=== PATIENT | male | born 1950 | race Caucasian/White ===

== ENCOUNTER → 2017-11-04 | Outpatient (CLI) | payer BC, OTHER ==
[~2017-11-04] MED LIST: GLUCTAB7 PO; MULT-892 PO; OMEGCAP2 PO
[2017-11-04 16:57] LABS: BASO % 0.2 %; BASO ABS # 0.01 K/uL (0-0.2); EOS % 2.5 %; EOS ABS # 0.11 K/uL (0-0.5); HEMATOCRIT 43.4 % (42-52); HEMOGLOBIN 14.6 g/dL (14.0-18.0); IG# 0.01 K/uL (0.00-0.02); LYMPH % 33.1 %; LYMPH ABS # 1.47 K/uL (1.2-3.4); MEAN CELL VOLUME 91.8 fL (80-100); MEAN CORPUSCULAR HEMOGLOBIN 30.9 pg (25-34); MEAN CORPUSCULAR HGB CONC 33.6 g/dl (32-36); MEAN PLATELET VOLUME 9.9 fL (7.4-10.4); MONO % 9.2 %; MONO ABS # 0.41 K/uL (0.11-0.59); NEUT % 54.8 %; NEUT ABS # 2.43 K/uL (1.4-6.5); PLATELET COUNT 183 K/uL (130-400); RED CELL DISTRIBUTION WIDTH CV 12.5 % (11.5-14.5); RED CELL DISTRIBUTION WIDTH SD 42.2 fL (36.4-46.3); WHITE BLOOD COUNT 4.44 K/uL (4.8-10.8)
[2017-11-04 17:10] LABS: ALBUMIN 3.7 gm/dl (3.4-5.0); ALT/SGPT 25 U/L (12-78); BLOOD UREA NITROGEN 20 mg/dl (7-18); CALCIUM 8.9 mg/dl (8.5-10.1); CARBON DIOXIDE 29 mmol/L (21-32); CHOLESTEROL 220 mg/dl (0-200); CREATININE 0.92 mg/dl (0.60-1.40); GLUCOSE 113 mg/dl (70-99); POTASSIUM 4.1 mmol/L (3.5-5.1); SODIUM 141 mmol/L (136-145)
[2017-11-04 17:14] LABS: ALKALINE PHOSPHATASE 78 U/L (45-117); AST/SGOT 13 U/L (15-37); LDL CHOLESTEROL CALCULATED 118 mg/dl; TOTAL PROTEIN 7.3 gm/dl (6.4-8.2)
--- NOTE | 2017-11-12 10:23 | CODING QUERY MEDICAL NECESSITY ---
SUPPORTING DIAGNOSIS NEEDED A supporting diagnosis is required for the test/procedure performed on this patient in order for us to be reimbursed by the patient's insurance. Please provide a supporting diagnosis for the following test/procedure listed below next to the test name along with your signature. *If there is no additional diagnosis for this patient that would support the following test/procedure please document that below next to the test/procedure. Test(s)/Procedure(s) that require a supporting diagnosis: DOS: 11/04/17 * PSA DIAGNOSIS: Provider Signature: Date: Thank you [facility] Management Once completed, please kindly fax back to [phone] For questions please call [phone]
== END | disposition home or self-care (01) ==
LOC: C.LABBC 15:22
PROVIDERS: ATTEND Internal Medicine
DX: M19.90 Unspecified osteoarthritis, unspecified site (principal); D64.9 Anemia, unspecified; R73.9 Hyperglycemia, unspecified; M48.00 Spinal stenosis, site unspecified; M25.50 Pain in unspecified joint

== ENCOUNTER → 2017-12-21 | Outpatient (CLI) | payer BC ==
--- NOTE | 2017-12-21 09:38 | DIAGNOSTIC IMAGING REPORT ---
R HAND MIN 3 VIEWS ROUTINE CLINICAL HISTORY: 67 years-old Male presenting with M72.0 Dupuytren's contracture attention right 5th finger. TECHNIQUE: Frontal, oblique, and lateral views of the right hand were obtained. COMPARISON: None. FINDINGS: The right fifth finger demonstrates hyper extension of the distal interphalangeal joint and flexion of the proximal interphalangeal joint. Osteophytosis at the distal interphalangeal joint evident as well as at additional DIP joints. Mild degenerative changes of the radiocarpal articulation. No acute fracture or acute malalignment. Atherosclerosis. IMPRESSION: 1. 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 2. Osteophytosis of multiple DIP joints characteristic of osteoarthritis. Electronically signed by: Krzysztof High M.D. 12/21/2017 9:37 AM Dictated Date/Time: 12/21/2017 9:31 AM
== END | disposition home or self-care (01) ==
LOC: C.RADBC 09:02
PROVIDERS: ATTEND Family Medicine Adult Medicine
DX: M72.0 Palmar fascial fibromatosis [Dupuytren] (principal); M25.741 Osteophyte, right hand

== ENCOUNTER → 2018-04-15 | Outpatient (CLI) | payer BC ==
--- NOTE | 2018-04-15 10:56 | DIAGNOSTIC IMAGING REPORT ---
CERVICAL SPINE 2 OR 3 VIEWS CLINICAL HISTORY: M19.90 Osteoarthritis prior surgery [id number]. Neck pain. COMPARISON STUDY: None. FINDINGS: AP, lateral, and odontoid views of the cervical spine were submitted for review. The cervical spine is visualized from C1 through T1. Straightening of the cervical spine with slight reversal the normal lordotic curvature. Extensive posterior decompression and fusion from C3 through C7 with pedicle screws and plates. The hardware appears intact. No fracture or subluxation. Prevertebral soft tissues and the C1-C2 interval are maintained. The C2-C3 sets appear fused. IMPRESSION: 1. Extensive posterior decompression and fusion within the cervical spine from C3 through C7. The hardware appears intact. 2. This likely accounts for the straightening of the cervical spine. 3. No fracture or subluxation. Electronically signed by: Liam Harrison M.D. 04/15/2018 10:55 AM Dictated Date/Time: 04/15/2018 10:51 AM
== END | disposition home or self-care (01) ==
LOC: C.RADBC 10:04
PROVIDERS: ATTEND Family Medicine Adult Medicine
DX: M19.90 Unspecified osteoarthritis, unspecified site (principal)

== ENCOUNTER 2024-12-28 07:53 | Observation (INO) ==
--- NOTE | 2024-12-28 09:14 | History & Physical Bridge Note ---
Date of Service December 28, 2024 History & Physical Bridge Note I have examined the patient, reviewed the History & Physical and in the interval since the performance of the History & Physical I have noted the following changes of clinical significance: no changes noted 74-year-old gentleman who follows with Dr. Dozier for his cardiology needs. Patient has had progressive anginal symptoms which are now limiting in nature. Underwent stress echocardiogram which demonstrated electrocardiographic evidence of myocardial ischemia as well as echo evidence of segmental wall motion at rest which worsened significantly with stress. Patient has therefore been scheduled to undergo cardiac catheterization for definitive evaluation plus or minus PCI as indicated. Comorbid disease includes hypertension and dyslipidemia. We will proceed with coronary angiography plus or minus PCI. Radial artery approach is intended. The risks, benefits, and alternatives were discussed in detail with the patient. Risks include but are not limited to; , stroke, MD, adverse drug reaction, infection, bleed, need for emergent surgery, renal failure, and exposure to radiation. Lack of onsite cardiac surgical backup and plan for air evacuation in the event of emergency was also discussed. Patient's questions were answered in full. He voiced understanding and wished to proceed with catheterization plus or minus PCI. The consent is signed and in the chart.
--- NOTE | 2024-12-28 09:15 | Pre Anesthesia Assessment ---
Date of Service December 28, 2024 Pre Sedation Assessment Vital Signs Temp Resp Pulse Ox O2 Del Method 12/28/24 08:04 36.6 C 18 97 Room Air Cardiovascular RRR, no murmur, no edema Respiratory normal respiratory effort, lungs clear to auscultation Pre-Sedation Airway Assessment Smoking Status: Former smoker Mallampati 2 ASA 3 Notes The planned sedation has been discussed with the patient. Informed Consent was obtained. I have identified the patient, determined the appropriateness of sedation and have assessed the patient immediately prior to the procedure. All medicine(s) and interventions are by my order.
[2024-12-28 09:44] LABS: iSTAT Creatinine 0.9 mg/dl (0.6-1.3); iSTAT Hemoglobin 14.3 g/dl (14.0-18.0); iSTAT Ionized Calcium 1.21 mmol/l (1.12-1.32); iSTAT Potassium 3.7 mmol/L (3.3-5.0)
[2024-12-28] MEDS: NITROGLYCERIN/D5W 100MCG/ML 20ML SYR ONE (10:05)
[2024-12-28] MEDS: niCARdipine 2,000 MCG/20 ML SYR ONE (10:05)
[2024-12-28] MEDS: OPTIRAY 350 ONE (11:17)
[2024-12-28] MEDS: fentaNYL citrate PF 100 MCG/2 ML VIAL ONE (11:17)
[2024-12-28] MEDS: MIDAZOLAM HCL 1 MG/ML 2ML VIAL ONE (11:17)
[2024-12-28] MEDS: HEPARIN (PORCINE) 1000 UNIT/ML 10 ML (CATH LAB USE ONLY) ONE ×2 (11:17)
[2024-12-28] MEDS: TICAGRELOR 90 MG TAB ONE (11:19)
--- NOTE | 2024-12-28 11:25 | Post Anesthesia Assessment ---
Date of Service December 28, 2024 Post Sedation Assessment Vital Signs Temp Resp Pulse Ox O2 Del Method 12/28/24 08:04 36.6 C 18 97 Room Air Recovery Score Activity: Moves 4 extremities Respiration: Deep Breath/Cough Circulation: +/-20% PreAnes Value Consciousness: Fully Awake Oxygen Saturation: > 92% On Room Air Discharge Sedation Level of Care: Fast Track Phase II Post Sedation Plan On clinical assessment, the patient appears to have tolerated the sedation without complications. Patient is recovering as anticipated. Patient will continue to be monitored by nursing and may be discharged when sedation discharge criteria are met per below protocol. Upon Completions of procedure up to 15 minutes continue every 5 minute vital signs and the P.A.R. score; then discharge to a Phase I or Fast Track to Phase II per the following guidelines: * Discharge Patient to appropriate Phase II area if PAR is 8 or greater or return to pre- procedure baseline. The post - procedure orders will be as directed. * If PAR score is less than 8 or not return to pre-procedure baseline then patient will follow Phase I monitoring till PAR is reached for Phase II. The Phase I may be done in procedure room or may call to secure a Phase I area. * If naloxone or flumazenil are used for reversal, hold in Phase I for continued monitoring from when last reversal dose was given for a minimum of 60 minutes or longer pending the nurse and/or physician discretion of patient condition before discharge to Phase II. Please call the Sedation Physician to re-evaluate and complete post-note for discharge to Phase II area. Do NOT discharge from procedure sedation or Phase 1 until post- sedation evaluation note is complete by procedure /sedation MD Sedation Discharge Instructions to be given to the patient at discharge to home. [facility] Procedure Codes (Charges) Sedation/Anesthesia Procedure 1: Sedation/Anesthesia: 39958 Mod Sedation by the same physician;Init15 Min Child Age 5 & Up (initial 15 min, start 0948) Total Sedation Time (minutes): 92 Procedure 2: Sedation/Anesthesia: 63653 Mod Sedation by the same physician; Ea [id number] Minutes (additional 77 min, end 1120) Total Sedation Time (minutes): 92
[2024-12-28] MEDS ORDERED: METOPROLOL SUCC 25MG EXT REL TAB PO SCH (11:45)
[2024-12-28] MEDS: METOPROLOL TARTRATE 25 MG TAB PO ONE (13:38)
[2024-12-28] MEDS: ROSUVASTATIN CALCIUM 20 MG TAB PO SCH (13:39)
--- NOTE | 2024-12-28 14:11 | Cardiac Catheterization ---
ACC Data: X Ray Operator Cardiac Status Clinical evaluation leading to the procedure CAD Presenation: Positive Stress Test and Stable angina (Progressive and limiting) Anginal Classification: CCS III Heart Failure: No Cardiogenic Shock within 24 Hours: No Cardiac Arrest within 24 Hours: No Imaging Studies Past 6 Months: Yes Stress Studies Past 6 Months: Yes Stress Echocardiogram: Yes - Positive Coronary Anatomy Dominant: Right Left Main (% Stenosis): Normal LAD (% Stenosis): Proximal (Mild but becomes more significant near the ostium of D1.) and Mid (Up to 85% at D1) D1 (% Stenosis): Proximal (Extending to mid segment before bifurcation up to 99%) Circumflex (% Stenosis): Normal RCA (% Stenosis): Proximal (Mild less than 30%), Mid (30 to 40% focal) and Distal (Mild scattered) R PDA (% Stenosis): Normal R PL1 (% Stenosis): Normal Ramus (% Stenosis): Proximal (50 to 70%) Diagnostic Physicians Name: Leonard Paula MD, PhD Closure Device Percutaneous Entry Location: Radial Closure Device: Radial Band Recommendations: Medical Therapy and/or Counseling and PCI without planned CABG PCI Indication: Angina despite med therapy Lesion Segment Name: Proximal to mid LAD Culprit Artery: Yes Stenosis Prior to Rx (%): 85% Chronic Total Occlusion: No Pre-Procedure KAITLIN Flow: 2 Previously Treated Lesion: No Lesion Complexity: Non-High/Non-C Lesion Length (mm): 32 Thrombus Present: No Bifurcation Lesion: Yes Guidewire Across Lesion: Yes Lesion #2 Segment Name: Proximal to mid diagonal 1 Culprit Artery: Yes Stenosis Prior to Rx (%): 99% Chronic Total Occlusion: No Pre-Procedure KAITLIN Flow: 2 Previously Treated Lesion: No Lesion Complexity: High/C Lesion Length (mm): 17 Thrombus Present: No Bifurcation Lesion: No Guidewire Across Lesion: Yes Cardiac Cath Procedure Full Procedure Date December 28, 2024 Pre-Procedure Diagnosis Pre-Procedure Diagnosis: Angina and Positive Stress Test AUC Score AUC Score: 07 Post-Procedure Diagnosis Post-Procedure Diagnosis: Severe CAD and Successful PCI Procedure(s) Performed Procedure(s) Performed: Coronary Angiography and Drug Eluting Stent Creative Services Designer Leonard Paula MD, PhD Estimated Blood Loss Estimated Blood Loss: 5 cc Medication(s) Medication(s): Fentanyl, Heparin, Lidocaine 1%, Nicardipine, Nitroglycerin and Versed Summary of Findings Brief description: Patient was brought to the cardiac catheterization suite where he was shaved and prepped in a sterile fashion. Sedated using IV Versed and fentanyl. Soft tissues of the right wrist were anesthetized using 2 mL of 1% Xylocaine. Right radial artery was accessed using modified Seldinger technique and a 6 [place] radial artery glide sheath was placed. Patient was provided anticoagulation with IV heparin and antispasmodics including nicardipine and nitroglycerin. All catheters were advanced and exchanged over a 0.035 J-tip wire. Left coronary angiography in orthogonal views with a 5 [place] JL 3.5 diagnostic catheter. Right coronary angiography in orthogonal views with a 5 [place] MPA 2 diagnostic catheter Diagnostic catheters were removed. Decision was made to proceed with PTCA of the LAD and diagonal. 6 [place] EBU 3.5 guide catheter was used to engage the left main. A BMW universal guidewire was then advanced and under fluoroscopic guidance passed across the lesion in the diagonal and positioned distally. A [place] blue guidewire was then introduced through the guide catheter and positioned distally in the LAD. ACT was checked and additional heparin was provided to maintain therapeutic anticoagulation. This was repeated several times throughout the case. Predilatation of the diagonal lesion was performed using a 2.5 x 12 mm trek balloon at 8 kike x 3 inflations. Balloon was removed. We attempted to pass a 2.5 x 22 mm [place] drug-eluting stent to cover the entire lesion in the diagonal. It would not pass. Stent was removed. A GuideLiner guide catheter was then advanced over the 2 coronary guidewires. We were able to deliver a 2.25 x 12 mm [place] drug-eluting stent across the mid to distal portion of the diagonal stenosis. It was deployed at 14 kike. The stent balloon was then removed. Patient was provided intracoronary nitroglycerin. We again attempted to deliver a stent but were unsuccessful. The stent was removed. A 2.5 x 12 mm trek balloon was then advanced and positioned in the proximal part of the lesion. This was dilated twice to 8 kike. Decision was made to remove the [place] wire. We were able to deliver a 2.25 x 12 mm [place] drug-eluting stent into the proximal portion of the lesion and overlapped this with the mid to distal stent. It was then deployed at 17 kike. Stent balloon was then removed. BMW universal guidewire was removed. A new BMW universal guidewire was introduced and positioned distally in the LAD. LAD lesion was then predilated using the 2.5 x 12 mm trek balloon inflated 3 times up to 14 kike. Balloon was removed. A 3.0 x 34 mm [place] drug-eluting stent was then advanced and positioned to cover the entire LAD lesion from proximal to the diagonal ostium and well into the mid segment. This was deployed at 14 kike. Stent balloon was removed and angiography was performed. Decision was made to add a short stent distally in an overlap fashion. A 2.75 x 8 mm [place] stent was then advanced over the wire and positioned with its proximal edge just within the distal edge of the initial LAD stent. Deployed at 16 kike. The overlapped portion was then postdilated to 18 kike. Postdilatation of the proximal portion of the LAD stent using a 3.25 x 8 mm NC Fredy balloon. 15 kike with a second inflation at the proximal edge of the stent to 17 kike. Balloon was then removed. Final angiographic evaluation was performed in orthogonal views. Guidewire was removed. Radial artery sheath was removed. Hemostasis was obtained using a TR band. Patient was hemodynamically stable and asymptomatic. He was returned to the recovery area. This ended the case. Coronary angiography findings: KDH-eicww-pejyxmx vessel. No disease. ZYN-jqitm-faleoap and transapical. Proximal segment with mild diffuse disease. Gives a large caliber branching first diagonal. Diagonal has proximal to mid up to 99% stenosis and then branches. The late proximal and mid LAD have diffuse eccentric up to 85% stenosis. Distally the vessel becomes tortuous and there is only mild luminal irregularities. There is KAITLIN II flow in the LAD and diagonal after the lesions. Ramus-this is a medium caliber branching vessel which arises high off of the LAD. There is a proximal 50 to 70% stenosis. Vessel is appearing too small for PCI. LCx-medium to large in caliber. Travels in the AV groove and terminates distally. There do not appear to be any significant branches other than an atrial branch. RCA-this is very large and dominant. Proximally there is mild diffuse disease of less than 30%. The mid segment has 30 to 40% focal narrowing and the distal vessel has mild scattered plaques. RCA bifurcates into a large PDA and a large multi branching posterolateral. These branch vessels have no more than mild luminal irregularities. PCI- 0% residual stenosis in the diagonal post PCI 0% residual stenosis in the proximal to mid LAD post PCI No evidence of dissection or perforation post PCI KAITLIN-3 flow post PCI The ostium of the diagonal is jailed by LAD stent struts. Summary: 1. Severe two-vessel coronary disease as described (LAD and large D1) these are the culprits for symptoms and abnormal findings on stress test. 2. Successful complex PCI of the LAD and diagonal using 2 overlapped drug- eluting stents in each vessel. 3. Dual antiplatelet therapy with aspirin 81 mg daily and Brilinta 90 mg p.o. twice daily for up to 2 years. Preferably longer if tolerated given complexity and extent of stenting. 4. Guideline directed medical therapy for secondary prevention of coronary disease per primary political science instructor. Currently includes aspirin, metoprolol, and rosuvastatin. Hemodynamics Rest Ao:: 112/79 mmHg Final Ao: 160/85 mmHg LV: Not performed Recommendations Recommendations: Medical Therapy and/or Counseling and PCI without planned CABG Radiation Exposure (mGy) 4416 mGy, fluoroscopy time 31.1 minutes Contrast (mls) 255 cc Anesthesia 2 mg Versed, 100 mcg fentanyl IV. Procedural Complication(s) None Disposition X Ray Operator Holding/Recovery I attest to the content of the Intraoperative Record and any orders documented therein. Any exceptions are noted below. [facility] Card Cath Procedure Codes Cardiac Catheterization Procedure 1: Cardiovascular Cath Procedures: 09041 Coronaries Moderate Sedation Procedure 1: Sedation/Anesthesia: 80853 Mod Sedation by the same physician;Init15 Min Child Age 5 & Up (Initial 15 minutes, start time 0948) Procedure 2: Sedation/Anesthesia: 60075 Mod Sedation by the same physician; Ea [id number] Minutes (Additional 77 minutes, end time 1120) Stenting Procedure 1: Cardiovascular Stent Procedures: 28070 Perc transcatheter placement of intracoronary stent(s), with ang (LAD) Procedure 2: Cardiovascular Stent Procedures: 89039 Ea addl branch of a major coronary artery (Diagonal 1) PG Care Time/CCT Total # of Minutes Spent Total Time Spent with Patient: Total time spent is greater than 50% in coordination of care (as documented) at patient's floor/unit and/or counseling patient:
--- NOTE | 2024-12-28 14:38 | Hospitalist Consultation ---
Date of Consultation December 28, 2024 Assessment & Plan (1) Coronary artery disease: Multivessel CAD diagnosed via cardiac catheterization today with stable angina - Follow post catheterization protocol per cardiology, primary service - Continue aspirin + ticagrelor, statin, and beta-roxana therapy - Stop smoking, pt educated on importance of reducing risk factors - Heart healthy diet (2) Gastroesophageal reflux disease: Chronic - Does not take any specific medications for this - Follow GERD diet (3) Osteoarthritis of left knee: Chronic - Continue OTC supplements - APAP as needed for pain Plan No further recommendations for this patient. Thank you for allowing us to participate in the care. Will follow along. Plan d/w Dr. Carbajal who will also see and evaluate this patient. Supervising Physician Co-Signing Physician Notes Medicine was consulted During face to face encounter, I obtained a history and physical examination, discussed plan of care with patient and answered any questions. I discussed plan of care with SUYAPA Thomas. I reviewed above note and agree with it except for the following: Patient seen for CAD. Management joaquin be for chronic issues. Will resume home meds and monitor. History of Present Illness Reason for Consultation: Medical management Requesting Physician: Dr. Paula Attending Physician: Leonard Paula MD, PhD History of Present Illness Bk is a 74 yo M with a pmhx of osteoarthritis, GERD, and spinal stenosis who presented for elective cardiac catheterization. Patient reported symptoms that started last fall, first noticed during hunting season with symptoms of increased fatigue, dyspnea with exertion, and intermittent chest pain. Symptoms would relieve with rest. He reported difficulty getting in for an appointment over the winter. He saw his PCP for his annual well visit and notified him of his symptoms. He was referred for stress echocardiogram that was performed December 12 and was found to be abnormal with baseline anterior hypokinesis which worsened during exercised. His LVEF was preserved at 50-55%. Today, he was brought in for cardiac catheterization with Dr. Paula and underwent PCI to LAD and diagonal. He tolerated the procedure well and has been transitioned back to PCU. He is currently resting comfortably and has no complaints. He denies chest pain or dyspnea. Hospitalists have been consulted for medical management. Allergies Allergy/AdvReac Type Severity Reaction Status Date / Time No Known Drug Allergies Allergy Verified 12/21/24 08:57 Home Medications Medication Instructions Recorded Confirmed Type yjgudjdgtsj-xdqosjbxl-qvl C-Mn 500 1 tab PO QAM 08/01/18 12/28/24 History mg-400 mg capsule (Glucosamine Chondroitin Maximum Strength) multivitamin 1 tab PO QAM 08/01/18 12/28/24 History beta-sitosterol 125 mg-vit D3 10 1 tab PO DAILY 05/15/22 12/28/24 History lkf-exszvnve-lfoemqpde 250 mg tablet (Prostate Max Plus) magnesium 250 mg tablet 250 mg PO DAILY 11/21/24 12/28/24 History milk thistle 150 mg capsule 150 mg PO BID 11/21/24 12/28/24 History aspirin 81 mg tablet,delayed 81 mg PO DAILY #90 tabs 12/21/24 12/28/24 Rx release (Adult Low Dose Aspirin) nitroglycerin 0.4 mg sublingual 0.4 mg sublingual Q5M PRN chest 12/21/24 12/28/24 Rx tablet pain #25 tabs rosuvastatin 40 mg tablet 40 mg PO DAILY #90 tabs 12/21/24 12/28/24 Rx metoprolol succinate 25 mg 25 mg PO QAM #90 tabs 12/29/24 Rx tablet,extended release 24 hr ticagrelor 90 mg tablet (Brilinta) 90 mg PO BID #180 tabs 12/29/24 Rx Patient History Medical History History of herniated intervertebral disc Anemia Tubular adenoma of colon Surgical History Hx of wisdom tooth extraction H/O inguinal hernia repair (~2022) H/O hand surgery History of hemorrhoidectomy Hx of colonoscopy Hx of laminectomy Hx of arthroscopy of knee Family History Mother Myocardial infarction Cancer Non-Hodgkin lymphoma Father Alzheimer disease Brother Hyperglycemia Sister Cancer Other No family history of adverse response to anesthesia Denies family history of Ovarian cancer Prostate cancer Breast cancer Colorectal cancer Social History Smoking Status: Former smoker Tobacco Type: Cigars Age Started Using Tobacco: 67; Age Quit Using Tobacco: 69; Cigarettes Per Day: smokes cigars occasionally; Second Hand Exposure: No; Do You Dip or Chew Tobacco: No; Hx Alcohol Use: Yes Alcohol type: hard liquor Alcohol type Comment: 2-3 shots every other day Alcohol Intake Frequency: 2-3 x/Week Hx Substance Use: No Preferred Language: French Communication Ability: Effective Visual Impairment: Limited Hearing Ability: Normal Slot Shift Supervisor Required: No Beliefs That Will Affect Care: None marital status: Current Living Situation: Alone current occupational status: employed 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 Denies fever, chills, fatigue, headache, nasal congestion, sore throat, cough, chest pain, shortness of breath, palpitations, orthopnea, PND, abdominal pain, n/v/d, constipation, dysuria, hematuria, frequency, back pain, joint pain or swelling, easy bruising or bleeding, skin lesions or rashes. Physical Exam Physical Exam: GENERAL: 74 yo well-nourished WM. A&Ox4. No distress. LUNGS: Clear to auscultation bilaterally. No W/R/R. CARDIOVASCULAR: Regular rate and rhythm. No M/G/R. No JVD. ABDOMEN: Soft, non-tender and non-distended. Bowel sounds normoactive x 4 quad. EXTREMITIES: Right radial artery with pressure dressing in place. No LE edema. Non-tender. Peripheral pulses +2/4. PSYCHIATRIC: Cooperative. Appropriate mood and affect. SKIN: Warm, dry, intact. No rashes or lesions. Results & Data Results & Data Vital Signs (Past 12 Hours) Vital Signs Temp Pulse Pulse Resp BP Pulse Ox O2 Del Method 12/28/24 14:18 37.0 C 75 18 116/74 96 Room Air 12/28/24 13:59 36.6 C 80 18 144/83 H 97 Room Air 12/28/24 13:30 37.0 C 80 16 130/70 98 Room Air 12/28/24 13:01 36.7 C 82 54 L 18 169/83 H 99 Room Air 12/28/24 13:00 37.0 C 82 18 128/68 97 Room Air 12/28/24 12:48 36.7 C 54 L 18 169/83 H 99 Room Air 12/28/24 12:45 82 12/28/24 12:45 36.4 C L 77 16 141/82 H 97 Room Air 12/28/24 12:30 36.7 C 56 L 18 173/80 H 98 Room Air 12/28/24 11:45 50 L 16 154/82 H 100 Room Air 12/28/24 11:30 56 L 16 174/87 H 100 Room Air 12/28/24 08:04 36.6 C 18 97 Room Air Diagnostic Findings Coronary angiography findings: AAD-rbnxv-utijnkk vessel. No disease. CCP-snkkt-cbstdwk and transapical. Proximal segment with mild diffuse disease. Gives a large caliber branching first diagonal. Diagonal has proximal to mid up to 99% stenosis and then branches. The late proximal and mid LAD have diffuse eccentric up to 85% stenosis. Distally the vessel becomes tortuous and there is only mild luminal irregularities. There is KAITLIN II flow in the LAD and diagonal after the lesions. Ramus-this is a medium caliber branching vessel which arises high off of the LAD. There is a proximal 50 to 70% stenosis. Vessel is appearing too small for PCI. LCx-medium to large in caliber. Travels in the AV groove and terminates distally. There do not appear to be any significant branches other than an atrial branch. RCA-this is very large and dominant. Proximally there is mild diffuse disease of less than 30%. The mid segment has 30 to 40% focal narrowing and the distal vessel has mild scattered plaques. RCA bifurcates into a large PDA and a large multi branching posterolateral. These branch vessels have no more than mild luminal irregularities. PCI- 0% residual stenosis in the diagonal post PCI 0% residual stenosis in the proximal to mid LAD post PCI No evidence of dissection or perforation post PCI KAITLIN-3 flow post PCI The ostium of the diagonal is jailed by LAD stent struts. Summary: 1. Severe two-vessel coronary disease as described (LAD and large D1) these are the culprits for symptoms and abnormal findings on stress test. 2. Successful complex PCI of the LAD and diagonal using 2 overlapped drug- eluting stents in each vessel. 3. Dual antiplatelet therapy with aspirin 81 mg daily and Brilinta 90 mg p.o. twice daily for up to 2 years. Preferably longer if tolerated given complexity and extent of stenting. 4. 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 Currently includes aspirin, metoprolol, and rosuvastatin. PG Care Time/CCT Total # of Minutes Spent Total Time Spent with Patient: Total time spent is greater than 50% in coordination of care (as documented) at patient's floor/unit and/or counseling patient: 62 minutes Coding Level of Care Code 28576 IN/OBS CONSULT LVL 4,60M Diagnoses Coronary artery disease of [place] artery of [place] heart with stable angina pectoris I25.118 Associated angina: with stable angina Coronary Disease-Associated Artery/Lesion type: [place] artery [place] vs. transplanted heart: [place] heart Gastroesophageal reflux disease without esophagitis K21.9 Esophagitis presence: without esophagitis Primary osteoarthritis of left knee M17.12 Osteoarthritis type: primary (1) Coronary artery disease Associated angina: with stable angina Coronary Disease-Associated Artery/Lesion type: [place] artery [place] vs. transplanted heart: [place] heart Qualified Code(s): I25.118 - Atherosclerotic heart disease of [place] coronary artery with other forms of angina pectoris (2) Gastroesophageal reflux disease Esophagitis presence: without esophagitis Qualified Code(s): K21.9 - Gastro-esophageal reflux disease without esophagitis (3) Osteoarthritis of left knee Osteoarthritis type: primary Qualified Code(s): M17.12 - Unilateral primary osteoarthritis, left knee
--- NOTE | 2024-12-28 17:19 | Electrocardiogram Report ---
Test Reason : Blood Pressure : */* mmHG Vent. Rate : 47 BPM Atrial Rate : 47 BPM P-R Int : 168 ms QRS Dur : 98 ms QT Int : 436 ms P-R-T Axes : 44 -18 4 degrees QTcB Int : 385 ms Sinus bradycardia Abnormal ECG When compared with ECG of 12-May-2018 13:32, No significant change was found Confirmed by Ollie Salinas ([id number]) on 12/28/2024 5:19:16 PM Referred By: Alonzo Dozier Confirmed By: Ollie Salinas
[2024-12-28] MEDS: TICAGRELOR 90 MG TAB PO SCH (20:32)
[2024-12-29 06:57] LABS: Basophils # (auto) 0.02 K/uL (0.00-0.20); Basophils % (auto) 0.4 %; Hematocrit (blood only) 40.3 % (42.0-52.0); Hemoglobin 13.3 g/dl (14.0-18.0); Immature Granulocytes # (auto) 0.01 K/uL (0.01-0.20); Immature Granulocytes % (auto) 0.2 %; Lymphocytes # (auto) 1.25 K/uL (1.20-3.40); Lymphocytes % (auto) 25.1 %; Mean Corpuscular Hemoglobin 29.6 pg (25.0-34.0); Mean Corpuscular Volume 89.8 fL (80.0-100.0); Mean Platelet Volume 9.6 fL (9.4-12.4); Monocytes # (auto) 0.45 K/uL (0.11-0.59); Neutrophils # (auto) 3.16 K/uL (1.40-6.50); Neutrophils % (auto) 63.3 %; Platelet Count 161 K/uL (130-400); RDW Coefficient of Variation 12.3 % (11.5-14.5); RDW Standard Deviation 40.3 fL (36.4-46.3); Red Blood Count 4.49 M/uL (4.70-6.10); White Blood Count 4.99 K/ul (4.8-10.8)
[2024-12-29 07:09] LABS: BUN Creatinine Ratio 21.3 (10-20); Calcium 8.6 mg/dl (8.6-10.3); Creatinine Clr Calc Pharmacy 71.7 ml/min; Potassium 4.6 mmol/L (3.5-5.1)
[2024-12-29 07:32] VITALS: RESP 18
[2024-12-29] MEDS: ASPIRIN 81 MG ECTAB PO SCH (08:24)
[2024-12-29] MEDS: METOPROLOL SUCC 25MG EXT REL TAB PO SCH (08:50)
[2024-12-29 11:57] VITALS: BP 109/68; PULSE 77; TEMP 98.4; O2SAT 96
== END 2024-12-29 14:10 | disposition home or self-care (01) ==
LOC: 2S 07:53 → CC 07:53
PROC: CLB.CCO (2024-12-28 09:30)